=== PATIENT | male | born 1980 | race Caucasian/White ===

== ENCOUNTER 2016-09-13 16:15 | Observation (INO) | payer BC, OTHER ==
[2016-09-13] MEDS ORDERED: ONDANSETRON 4 MG/2 ML VIAL IVP ONE (17:42)
[2016-09-13] MEDS ORDERED: FLUID IV ONE (17:42)
[2016-09-13] MEDS ORDERED: HYDROmorphONE/DILAUDID 1 MG/ML SYR IVP ONE (17:42)
[2016-09-13 17:43] LABS: % IMMATURE GRANULYOCYTES 0.4 % (0.0-1.1); ABSOLUTE IMMATURE GRANULOCYTES 0.04 10^3/uL (0.00-0.10); ADD DIFF? NO; ADD MORPH? NO; ADD SCAN? NO; ATYPICAL LYMPHOCYTE FLAG 0 (0-99); FRAGMENT RBC FLAG 0 (0-99); HEMATOCRIT 48.7 % (40.0-51.0); HEMOGLOBIN 17.3 g/dL (13.7-17.5); LEFT SHIFT FLG 0 (0-99); LIPEMIA HEMOLYSIS FLAG 90 (0-99); MEAN CELL HEMOGLOBIN 28.2 pg (27.9-34.1); MEAN CELL HEMOGLOBIN CONCENTR. 35.5 g/dL (32.4-36.7); MEAN CELL VOLUME 79.3 fL (81.5-99.8); PLATELET CLUMPS FLAG 0 (0-99); PLATELET COUNT 401 10^3/uL (150-400); RED BLOOD CELL COUNT 6.14 10^6/uL (4.40-6.38); RED CELL DISTRIBUTION WIDTH 12.8 % (11.5-15.2)
[2016-09-13 18:07] LABS: ALANINE AMINOTRANSFERASE 51 IU/L (21-72); ALBUMIN 4.5 g/dL (3.5-5.0); ALKALINE PHOSPHATASE 97 IU/L (38-126); ANION GAP 14 mEq/L (8-16); ASPARTATE AMINOTRANSFERASE 28 IU/L (17-59); BILIRUBIN-CONJUGATED 0.4 mg/dL (0.0-0.5); BILIRUBIN-UNCONJUGATED 0.6 mg/dL (0.0-1.1); CALCIUM 9.9 mg/dL (8.5-10.4); CARBON DIOXIDE 24 mEq/l (22-31); CHLORIDE 101 mEq/L (97-110); CREATININE 1.4 mg/dL (0.7-1.3); GLOMERULAR FILTRATION RATE 57; GLUCOSE 116 mg/dL (70-100); POTASSIUM 4.1 mEq/L (3.5-5.2); SODIUM 139 mEq/L (134-144); TOTAL PROTEIN 7.4 g/dL (6.3-8.2)
[2016-09-13] MEDS ORDERED: METOPROLOL TARTRATE 25 MG TAB ONE (18:12)
[2016-09-13] MEDS ORDERED: METOPROLOL TARTRATE 25 MG TAB PO ONE (18:20)
[2016-09-13] MEDS ORDERED: NS 1,000 ML IV ONE (18:56)
--- NOTE | 2016-09-13 18:59 | CT ---
Unenhanced CT Scan of the Abdomen and Pelvis CLINICAL HISTORY: 36-year-old male with an elevated serum creatinine who presents to the ED complaini ng of nausea, vomiting, and diarrhea for 5 days. On physical exam, he has generalized abdominal tende rness. His medical history is notable for hypertension, psoriatic arthritis and peptic ulcer disease. He denies any prior abdominal surgeries. TECHNIQUE: Neither oral, retrograde rectal, nor IV contrast was administered. A multidetector unenhan trevor helical CT scan was obtained from the lung bases inferiorly through the proximal femora, with daniel ges reformatted at 5.00 and 1.25 mm increments, and reviewed at a variety of window and level setting s. Parasagittal and paracoronal reconstructed images are reviewed on the workstation. The DFOV is 42 cm. A dose reduction protocol was used. COMPARISON STUDY: None. FINDINGS: Unenhanced CT Scan of the Abdomen: There are some mild dependent changes seen posteriorly at the lung bases. There is no pericardial or pleural effusion. The spleen is enlarged, measuring 14.2 x 4.5 x 1 2.7 cm. The liver is normal in size. There are no hepatic, pancreatic, splenic, adrenal, renal, or ur eteral calculi. There is some mild atherosclerotic calcification associated with the abdominal aorta and the proximal left common iliac artery. There is a normal appearance to the retrocecal appendix, ( seen on series 3, images 146-186). There is some intraluminal fluid within the stomach and in a porti on of the duodenum. There is no abnormal small bowel dilatation, and the colon appears relatively nor mal. There is no ascites or free air. There is no pathologically-enlarged retroperitoneal or mesenter ic adenopathy. The renal contours are normal, with no hydronephrosis or perinephric inflammation. The osseous structures are age-appropriate. Unenhanced CT Scan of the Pelvis: The prostate gland and the seminal vesicles appear normal. The urin jeronimo bladder is moderately distended. There is no distal ureterolithiasis or urinary bladder calculus. There is no free fluid or adenopathy. The osseous structures appear normal. IMPRESSION: 1. Mild splenomegaly. 2. There is no evidence of a mechanical bowel obstruction or localized enterocolitis. 3. Normal appearance to the retrocecal appendix. 4. There is no evidence of obstructive uropathy or nephroureterolithiasis. Results were discussed with Carlyle Weir PA-C. Attention: This CT examination is specifically designed to evaluate patients who are clinically susp ected of having acute obstructive uropathy. This examination does not use radiographic contrast, and as such, provides only a limited evaluation of the abdomen, pelvis, and retroperitoneum. If there i s further clinical suspicion for pathological conditions other than obstructive uropathy, a complete CT evaluation of the abdomen and pelvis utilizing intravenous, oral, and rectal contrast should be co nsidered. A Document Only message has been documented for CATHLEEN Hua in the [employer] system on 09/13/2016 18:55, Message ID [id number].
[2016-09-13 19:17] LABS: COLOR YELLOW; LEUKOCYTE ESTERASE,URINE NEGATIVE (NEGATIVE); NITRITE,URINE NEGATIVE (NEGATIVE)
[2016-09-13] MEDS ORDERED: MAALOX/LIDO/HYOSC GI COCKTAIL 55 ML BOTTLE PO ONE (19:30)
[2016-09-13] MEDS ORDERED: PANTOPRAZOLE SODIUM 40 MG VIAL IVP ONE (19:30)
[2016-09-13] MEDS ORDERED: ONDANSETRON DISINTEGRATING 4 MG TAB PO PRN (21:17)
[2016-09-13] MEDS ORDERED: PROMETHAZINE HCL 25 MG/ML VIAL IVP PRN (21:17)
[2016-09-13] MEDS ORDERED: PROMETHAZINE HCL 25 MG TAB PO PRN (21:17)
[2016-09-13] MEDS ORDERED: ONDANSETRON 4 MG/2 ML VIAL IVP PRN (21:17)
[2016-09-13] MEDS ORDERED: ACETAMINOPHEN 325 MG TAB PO PRN (21:17)
[2016-09-13] MEDS ORDERED: MAALOX/LIDO/HYOSC GI COCKTAIL 55 ML BOTTLE PO PRN (21:20)
--- NOTE | 2016-09-13 21:30 | PDGENHP ---
History and Physical - Chief Complaint Acute abdominal pain - History of Present Illness Primary canoe builder: Dr. Sargent Primary foam charger: Dr. Fonseca HPI: 36-year-old male presenting with acute abdominal pain located in the left upper quadrant radiating laterally, characterized as sharp, onset of symptoms approximately 1 week ago and duration is persistent thereafter. Symptoms are exacerbated by oral intake of solids and liquids and are associated with non bloody vomiting. The patient also reports that his urine has been particularly dark although he denies overt oliguria. Denies any melena or hematochezia. The only recent medication adjustment was a burst of steroids approximately 10 days ago which he was taking for joint pain. He normally uses Tylenol or Percocet for his joint pain and does not utilize nonsteroidal anti-inflammatory medications. In our emergency department, he received a GI cocktail with pantoprazole and this seemed to somewhat alleviated his symptoms. He has also been seen in the emergency department at [facility] as well as [facility] and has not received any additional workup outside of symptomatic management. History Information - Allergies/Home Medication List Allergies/Adverse Reactions: No Known Allergies Allergy (Unverified 09/13/16 16:27) Home Medications: Acetaminophen [Tylenol Arthritis] 650 mg PO DAILY 09/13/16 [Last Taken 09/11/16] Apremilast [Otezla] 30 mg PO DAILY 09/13/16 [Last Taken 09/08/16] Metoprolol Tartrate [Lopressor 25 mg (*)] 25 mg PO BID 09/13/16 [Last Taken ] clonazePAM [klonoPIN (*)] 1 mg PO BID 09/13/16 [Last Taken 09/13/16] I have personally reviewed and updated: family history, medical history, social history, surgical history - Past Medical History hypertension Additional medical history: Peptic ulcer disease in the setting of heavy nonsteroidal anti-inflammatory medications as well as steroids as well as H pylori, approximately 6 months ago, treated with PPI and antibiotics; psoriatic arthritis, unable to receive biologic secondary to his strong family history of hematologic malignancies - Surgical History Additional surgical history: EGD approximately [address] [facility] - Family History Additional family history: Significant family history of hematologic malignancies, father with leukemia - Social History Smoking Status: Never smoked Alcohol Use: Occasionally Drug Use: Marijuana Additional social history: Normally independent in his ADLs Review of Systems ROS: 10pt was reviewed & negative except for what was stated in HPI & below Gastrointestinal: Reports: vomitting, abdominal pain Muscolosketal: Reports: joint pain, joint swelling Physical Exam Temp Pulse Resp BP Pulse Ox 36.6 C 70 16 132/87 H 97 09/13/16 20:47 09/13/16 20:47 09/13/16 20:47 09/13/16 20:47 09/13/16 20:47 O2 (L/minute) 2 Constitutional: no apparent distress, appears nourished, uncomfortable, No not in pain Eyes: PERRL, anicteric sclera, EOMI Ears, Nose, Mouth, Throat: hearing normal, dry mucous membranes Cardiovascular: regular rate and rhythym, no murmur, rub, or gallop, No edema Respiratory: no respiratory distress, no rales or rhonchi, clear to auscultation Gastrointestinal: normoactive bowel sounds, no palpable masses, tenderness ( Left upper quadrant), No guarding, No distension Skin: other (Small psoriatic plaques over his bilateral dorsal surfaces of his hands, psoriatic plaques on his bilateral shins) Musculoskeletal: other (Right knee effusion, pain with extension and flexion in right knee) Neurologic: AAOx3, sensation intact bilaterally, No weakness Psychiatric: interacting appropriately, not anxious, not encephalopathic, thought process linear Lab Data & Imaging Review 09/13/16 17:30 09/13/16 17:30 WBC 10.69 10^3/uL (3.80-9.50) H 09/13/16 17:30 RBC 6.14 10^6/uL (4.40-6.38) 09/13/16 17:30 Hgb 17.3 g/dL (13.7-17.5) 09/13/16 17:30 Hct 48.7 % (40.0-51.0) 09/13/16 17:30 MCV 79.3 fL (81.5-99.8) L 09/13/16 17:30 MCH 28.2 pg (27.9-34.1) 09/13/16 17:30 MCHC 35.5 g/dL (32.4-36.7) 09/13/16 17:30 RDW 12.8 % (11.5-15.2) 09/13/16 17:30 Plt Count 401 10^3/uL (150-400) H 09/13/16 17:30 MPV 9.0 fL (8.7-11.7) 09/13/16 17:30 Neut % (Auto) 79.3 % (39.3-74.2) H 09/13/16 17:30 Lymph % (Auto) 12.4 % (15.0-45.0) L 09/13/16 17:30 [place] % (Auto) 6.6 % (4.5-13.0) 09/13/16 17:30 Eos % (Auto) 0.9 % (0.6-7.6) 09/13/16 17:30 Baso % (Auto) 0.4 % (0.3-1.7) 09/13/16 17:30 Nucleat RBC Rel Count 0.0 % (0.0-0.2) 09/13/16 17:30 Absolute Neuts (auto) 8.47 10^3/uL (1.70-6.50) H 09/13/16 17:30 Absolute Lymphs (auto) 1.33 10^3/uL (1.00-3.00) 09/13/16 17:30 Absolute Monos (auto) 0.71 10^3/uL (0.30-0.80) 09/13/16 17:30 Absolute Eos (auto) 0.10 10^3/uL (0.03-0.40) 09/13/16 17:30 Absolute Basos (auto) 0.04 10^3/uL (0.02-0.10) 09/13/16 17:30 Absolute Nucleated RBC 0.00 10^3/uL (0-0.01) 09/13/16 17:30 Immature Gran % 0.4 % (0.0-1.1) 09/13/16 17:30 Immature Gran # 0.04 10^3/uL (0.00-0.10) 09/13/16 17:30 Sodium 139 mEq/L (134-144) 09/13/16 17:30 Potassium 4.1 mEq/L (3.5-5.2) 09/13/16 17:30 Chloride 101 mEq/L (97-110) 09/13/16 17:30 Carbon Dioxide 24 mEq/l (22-31) 09/13/16 17:30 Anion Gap 14 mEq/L (8-16) 09/13/16 17:30 BUN 13 mg/dL (7-23) 09/13/16 17:30 Creatinine 1.4 mg/dL (0.7-1.3) H 09/13/16 17:30 Estimated GFR 57 09/13/16 17:30 Glucose 116 mg/dL (70-100) H 09/13/16 17:30 Calcium 9.9 mg/dL (8.5-10.4) 09/13/16 17:30 Total Bilirubin 1.0 mg/dL (0.1-1.4) 09/13/16 17:30 Conjugated Bilirubin 0.4 mg/dL (0.0-0.5) 09/13/16 17:30 Unconjugated Bilirubin 0.6 mg/dL (0.0-1.1) 09/13/16 17:30 AST 28 IU/L (17-59) 09/13/16 17:30 ALT 51 IU/L (21-72) 09/13/16 17:30 Alkaline Phosphatase 97 IU/L (38-126) 09/13/16 17:30 Total Protein 7.4 g/dL (6.3-8.2) 09/13/16 17:30 Albumin 4.5 g/dL (3.5-5.0) 09/13/16 17:30 Lipase 63.0 IU/L (23-300) 09/13/16 17:30 Urine Color YELLOW 09/13/16 18:00 Urine Appearance CLEAR 09/13/16 18:00 Urine pH 9.0 (5.0-7.5) H 09/13/16 18:00 Ur Specific [place] 1.013 (1.002-1.030) 09/13/16 18:00 Urine Protein NEGATIVE (NEGATIVE) 09/13/16 18:00 Urine Ketones NEGATIVE (NEGATIVE) 09/13/16 18:00 Urine Blood NEGATIVE (NEGATIVE) 09/13/16 18:00 Urine Nitrate NEGATIVE (NEGATIVE) 09/13/16 18:00 Urine Bilirubin NEGATIVE (NEGATIVE) 09/13/16 18:00 Urine Urobilinogen NEGATIVE EU (0.2-1.0) 09/13/16 18:00 Ur Leukocyte Esterase NEGATIVE (NEGATIVE) 09/13/16 18:00 Ur Culture Indicated? NOT INDICATED (NI) 09/13/16 18:00 Urine Glucose NEGATIVE (NEGATIVE) 09/13/16 18:00 Assessment & Plan Assessment: 36-year-old male presenting with acute abdominal pain, suspected peptic ulcer disease Plan: 1. Suspected peptic ulcer disease. Acute, evidenced by left upper quadrant pain with history of peptic ulcer disease in the setting of history of H pylori. -patient was not adherent to proton pump inhibitor therapy after his initial treatment for H pylori -abdominal CT was without contrast, but it did not demonstrate any evidence of kidney stone, bowel distention, inflammatory changes such as colitis -patient's current symptoms may have been caused by recent oral prednisone burst -provide IV PPI twice daily, transition to oral tomorrow -GI cocktail as needed -oral oxycodone/IV morphine as needed -recommend EGD, recommend the patient contact his foam charger tomorrow a.m. and see if this can be arranged in the short term, if not, we may need to arrange this for him through GI of the [facility] -clear liquid diet -avoid nonsteroidal anti-inflammatory medications as well as oral prednisone -hold on H pylori testing given that he may receive EGD in the near future 2. Acute kidney injury. Most likely secondary to hypovolemia in the setting of poor oral intake secondary to abdominal symptoms -normal saline at 200 cc an hour, repeat serum creatinine level in a.m. and monitor I/Os 3. Hypertension. Chronic, continue patient's home medications 4. Psoriatic arthritis. Chronic, acute flare in his right knee, treat with ice and pain medications as needed -hold on IV steroid burst unless patient's knee pain is significantly worsened tomorrow and rendering him unable to ambulate -patient has good outpatient rheumatology follow-up Diet. Clear liquid diet Prophylaxis. Low risk patient, SCDs Code status. Full Disposition. Anticipated discharge is 09/14/2016, pending stabilization of issues outlined above. I have discussed the patient's presentation with Carlyle Weir, emergency department provider, we both agree that the patient requires observation and urgent stabilization of his symptoms outlined above.
[2016-09-13] MEDS: clonazePAM 1 MG TAB PO SCH (21:55)
[2016-09-13] MEDS: NS 1,000 ML IV SCH (21:55)
[2016-09-13] MEDS: oxyCODONE IR 5 MG TAB PO PRN (22:00)
--- NOTE | 2016-09-13 22:01 | EDPHY ---
H & P Stated Complaint: N/V/D for 5 days, nimo FAULKNER pain Time Seen by Provider: 09/13/16 17:15 HPI/ROS: Chief complaint: Abdominal pain with nausea, vomiting and diarrhea History of present illness: This is a 28-year-old male with a history of peptic ulcer disease who presents to the emergency department for evaluation and treatment of abdominal pain. Patient has had abdominal pain with nausea, vomiting and diarrhea for the last 5 days. It has been persistent. He states he has been to 2 other hospitals over this time frame including [facility] and the [facility]. He states he has been treated there with improvement in symptoms and discharged home but upon getting home symptoms return and persist. He is using Zofran at home. He denies specific precipitating factors. He denies alleviating factors. He does report an associated headache, he is concerned this is due to his high blood pressure as he cannot take his home medications from the persistent vomiting. He denies other associated signs or symptoms. Review of systems: A 10 point review of systems was obtained and other than described above was negative - Personal History Current Tetanus Diphtheria and Acellular Pertussis (TDAP): Yes - Medical/Surgical History Hx Asthma: No Hx Chronic Respiratory Disease: No Hx Diabetes: No Hx Cardiac Disease: No Hx Renal Disease: No Hx Cirrhosis: No Hx Alcoholism: No Hx HIV/AIDS: No Hx Splenectomy or Spleen Trauma: No Other PMH: Ulcer, psorisis. HTN. - Social History Smoking Status: Never smoked - Physical Exam Exam: General Appearance: Alert, nontoxic. Eyes: Pupils equal and round no pallor or injection. ENT, Mouth: Mucous membranes moist. Respiratory: There are no retractions, lungs are clear to auscultation. Cardiovascular: Regular rate and rhythm. Gastrointestinal: Bowel sounds present. Abdomen is soft and nondistended. There is diffuse tenderness. Neurological: Alert and oriented. Strength and sensation intact and symmetrical. Skin: Warm and dry, no rashes. Musculoskeletal: Neck is supple non tender. Extremities are symmetrical, full range of motion. Psychiatric: Patient is oriented X 3, there is no agitation. Constitutional: Initial Vital Signs Temperature (C) 36.7 C 09/13/16 16:25 Heart Rate 72 09/13/16 16:25 Respiratory Rate 18 09/13/16 16:25 Blood Pressure 210/125 H 09/13/16 16:25 O2 Sat (%) 98 09/13/16 16:25 O2 Delivery Mode Room Air Allergies/Adverse Reactions: No Known Allergies Allergy (Unverified 09/13/16 16:27) Home Medications: Medication Instructions Recorded Acetaminophen [Tylenol Arthritis] 650 mg PO DAILY 09/13/16 Apremilast [Otezla] 30 mg PO DAILY 09/13/16 Metoprolol Tartrate [Lopressor 25 25 mg PO BID 09/13/16 mg (*)] clonazePAM [klonoPIN (*)] 1 mg PO BID 09/13/16 Medical Decision Making ED Course/Re-evaluation: The patient was discussed with my secondary supervising physician Dr. Jason Garrison. Patient presents to the emergency department for abdominal pain with nausea, vomiting and diarrhea. Patient is nontoxic. Vital signs do reveal patient to be significantly hypertensive. He states he is not able to take his home a high blood pressure medication because of persistent vomiting. Blood studies, urinalysis and CT scan largely unremarkable. He is given a dose of his metoprolol, 25 mg which is his standard dose and his blood pressure has improved. Given that this is his 3rd emergency department visit this week for the symptoms and he has had poor control at home he will be admitted to the hospitalist service, Dr. Langston, for further evaluation and care. The plan has been discussed with the patient who voiced understanding and agreement with it. Differential Diagnosis: Included but not limited to peptic ulcer disease, gastritis, gastroenteritis, biliary tract disease, pancreatitis, colitis - Data Points Laboratory Results: Laboratory Results 09/13/16 17:30 09/13/16 17:30 09/13/16 09/13/16 18:00 17:30 WBC 10.69 H 10^3/uL (3.80-9.50) RBC 6.14 10^6/uL (4.40-6.38) Hgb 17.3 g/dL (13.7-17.5) Hct 48.7 % (40.0-51.0) MCV 79.3 L fL (81.5-99.8) MCH 28.2 pg (27.9-34.1) MCHC 35.5 g/dL (32.4-36.7) RDW 12.8 % (11.5-15.2) Plt Count 401 H 10^3/uL (150-400) MPV 9.0 fL (8.7-11.7) Neut % (Auto) 79.3 H % (39.3-74.2) Lymph % (Auto) 12.4 L % (15.0-45.0) [place] % (Auto) 6.6 % (4.5-13.0) Eos % (Auto) 0.9 % (0.6-7.6) Baso % (Auto) 0.4 % (0.3-1.7) Nucleat RBC Rel Count 0.0 % (0.0-0.2) Absolute Neuts (auto) 8.47 H 10^3/uL (1.70-6.50) Absolute Lymphs (auto) 1.33 10^3/uL (1.00-3.00) Absolute Monos (auto) 0.71 10^3/uL (0.30-0.80) Absolute Eos (auto) 0.10 10^3/uL (0.03-0.40) Absolute Basos (auto) 0.04 10^3/uL (0.02-0.10) Absolute Nucleated RBC 0.00 10^3/uL (0-0.01) Immature Gran % 0.4 % (0.0-1.1) Immature Gran # 0.04 10^3/uL (0.00-0.10) Sodium 139 mEq/L (134-144) Potassium 4.1 mEq/L (3.5-5.2) Chloride 101 mEq/L (97-110) Carbon Dioxide 24 mEq/l (22-31) Anion Gap 14 mEq/L (8-16) BUN 13 mg/dL (7-23) Creatinine 1.4 H mg/dL (0.7-1.3) Estimated GFR 57 Glucose 116 H mg/dL (70-100) Calcium 9.9 mg/dL (8.5-10.4) Total Bilirubin 1.0 mg/dL (0.1-1.4) Conjugated Bilirubin 0.4 mg/dL (0.0-0.5) Unconjugated Bilirubin 0.6 mg/dL (0.0-1.1) AST 28 IU/L (17-59) ALT 51 IU/L (21-72) Alkaline Phosphatase 97 IU/L (38-126) Total Protein 7.4 g/dL (6.3-8.2) Albumin 4.5 g/dL (3.5-5.0) Lipase 63.0 IU/L (23-300) Urine Color YELLOW Urine Appearance CLEAR Urine pH 9.0 H (5.0-7.5) Ur Specific [place] 1.013 (1.002-1.030) Urine Protein NEGATIVE (NEGATIVE) Urine Ketones NEGATIVE (NEGATIVE) Urine Blood NEGATIVE (NEGATIVE) Urine Nitrate NEGATIVE (NEGATIVE) Urine Bilirubin NEGATIVE (NEGATIVE) Urine Urobilinogen NEGATIVE EU (0.2-1.0) Ur Leukocyte Esterase NEGATIVE (NEGATIVE) Ur Culture Indicated? NOT INDICATED (NI) Urine Glucose NEGATIVE (NEGATIVE) Medications Given: Discontinued Medications Hydromorphone HCl (Dilaudid) 1 mg IVP EDNOW ONE Stop: 09/13/16 17:43 Last Admin: 09/13/16 17:48 Dose: 1 mg Sodium Chloride (Ns) 1,000 mls @ 0 mls/hr IV ONCE ONE PRN Reason: Wide Open Stop: 09/13/16 18:57 Last Admin: 09/13/16 19:00 Dose: 1,000 mls IV Miscellaneous Supplies (Ed Iv Infusion) 1 ea IV EDNOW ONE Stop: 09/13/16 17:43 Last Admin: 09/13/16 17:49 Dose: 1 ea Metoprolol Tartrate (Lopressor) 25 mg PO EDNOW ONE Stop: 09/13/16 18:21 Last Admin: 09/13/16 18:22 Dose: 25 mg Miscellaneous Medication (Gi Cocktail) 55 ml PO EDNOW ONE Stop: 09/13/16 19:31 Last Admin: 09/13/16 19:52 Dose: 55 ml Ondansetron HCl (Zofran) 4 mg IVP EDNOW ONE Stop: 09/13/16 17:43 Last Admin: 09/13/16 17:49 Dose: 4 mg Pantoprazole Sodium (Protonix) 40 mg IVP EDNOW ONE Stop: 09/13/16 19:31 Last Admin: 09/13/16 19:45 Dose: 40 mg Departure - Departure Disposition: [facility] Acute Clinical Impression: Abdominal pain Condition: Good
[2016-09-14] MEDS: NS 1,000 ML IV SCH (03:04)
[2016-09-14] MEDS: oxyCODONE IR 5 MG TAB PO PRN ×4 (05:44→16:12)
[2016-09-14 05:48] LABS: % IMMATURE GRANULYOCYTES 0.3 % (0.0-1.1); ABSOLUTE IMMATURE GRANULOCYTES 0.02 10^3/uL (0.00-0.10); ADD DIFF? NO; ADD MORPH? NO; ADD SCAN? NO; ATYPICAL LYMPHOCYTE FLAG 0 (0-99); FRAGMENT RBC FLAG 0 (0-99); HEMATOCRIT 39.2 % (40.0-51.0); HEMOGLOBIN 13.4 g/dL (13.7-17.5); LEFT SHIFT FLG 0 (0-99); LIPEMIA HEMOLYSIS FLAG 90 (0-99); MEAN CELL HEMOGLOBIN CONCENTR. 34.2 g/dL (32.4-36.7); MEAN CELL VOLUME 81.8 fL (81.5-99.8); PLATELET CLUMPS FLAG 10 (0-99); PLATELET COUNT 290 10^3/uL (150-400); RED BLOOD CELL COUNT 4.79 10^6/uL (4.40-6.38); RED CELL DISTRIBUTION WIDTH 13.2 % (11.5-15.2)
[2016-09-14 06:26] LABS: ALANINE AMINOTRANSFERASE 37 IU/L (21-72); ALKALINE PHOSPHATASE 58 IU/L (38-126); ANION GAP 7 mEq/L (8-16); ASPARTATE AMINOTRANSFERASE 18 IU/L (17-59); BILIRUBIN,TOTAL 0.7 mg/dL (0.1-1.4); CALCIUM 8.4 mg/dL (8.5-10.4); CARBON DIOXIDE 26 mEq/l (22-31); CHLORIDE 107 mEq/L (97-110); CREATININE 1.3 mg/dL (0.7-1.3); GLOMERULAR FILTRATION RATE > 60; GLUCOSE 82 mg/dL (70-100); POTASSIUM 4.3 mEq/L (3.5-5.2); SODIUM 140 mEq/L (134-144); TOTAL PROTEIN 5.3 g/dL (6.3-8.2)
[2016-09-14] MEDS: PANTOPRAZOLE SODIUM 40 MG in NS 100 ML IV SCH ×2 (08:40→17:09)
[2016-09-14] MEDS: clonazePAM 1 MG TAB PO SCH (08:40)
[2016-09-14 08:41] VITALS: TEMP 98.7
[2016-09-14] MEDS ORDERED: METOPROLOL TARTRATE 25 MG TAB PO SCH (09:00)
[2016-09-14] MEDS ORDERED: Apremilast [Otezla] 30 MG PO SCH (09:00)
[2016-09-14] MEDS ORDERED: methylPREDNISolone SOD SUCC 40 MG/ML VIAL IVP ONE (10:26)
[2016-09-14 16:15] VITALS: BP 144/82; PULSE 73; RESP 18; O2SAT 92
--- NOTE | 2016-09-14 16:51 | DX ---
Right Knee, Two Views. HISTORY: Right knee pain and swelling which is worsening. COMPARISON: August 2014. FINDINGS: There is mild joint narrowing and subarticular sclerosis and periarticular spurring in the medial compartment right knee similar in appearance. There is also mild periarticular spurring at the patella. Suprapatellar joint effusion. Small ununited ossification is seen at the tibial tubercle. N o evidence for acute fracture or dislocation. IMPRESSION: Stable mild degenerative change right knee. Suprapatellar joint effusion.
--- NOTE | 2016-09-14 19:46 | GDS ---
[f rep st] DISCHARGE SUMMARY ALL DIAGNOSES: 1. Abdominal pain secondary to peptic ulcer disease. 2. History of psoriatic arthritis with significant right knee pain. 3. Likely mild acute kidney injury. 4. Hypertension, on medications. HOSPITAL COURSE: A 36-year-old man admitted with severe abdominal pain. This was relieved instantly with a GI cocktail. He was placed on Protonix IV. His diet was slowly advanced. He has eaten a fu ll lunch and tolerated that just fine. He feels much better overall. He will be discharged on Michael nix 20 mg p.o. b.i.d. He does have a known history of peptic ulcer disease, as well as a gastroenter ologist, Dr. Coles in [place] whom he follows with. He will follow up with Dr. Coles for further tr eatment. He was previously treated for H pylori. He may need a test of cure and potentially retreat ment. May also need a repeat endoscopy. He has no signs of an upper gastrointestinal bleed with a n ormal BUN. He has psoriatic arthritis. He had a significantly swollen knee. X-ray of it showed nothing acute, other than suprapatellar edema. He received 1 dose of IV steroids with improvement in the swelling o verall. I have recommended that he go back to a very low dose of prednisone, given the recent upset of his peptic ulcer. He is amenable to this. He has good followup with a photographic technician. Will be a ble to get in to see her next week. /[id number]/MODL
== END 2016-09-14 18:39 | disposition home or self-care (01) ==
LOC: INTOOBSV 19:56 → F1N 21:00
PROVIDERS: ADMIT Internal Medicine; ATTEND Internal Medicine
DX: K27.9 Peptic ulcer, site unspecified, unspecified as acute or chronic, without hemorrhage or perforation (principal); L40.50 Arthropathic psoriasis, unspecified; N17.9 Acute kidney failure, unspecified; I10 Essential (primary) hypertension; E86.1 Hypovolemia; M25.461 Effusion, right knee; M17.11 Unilateral primary osteoarthritis, right knee
CPT/HCPCS: 73560; 74176; 96365; 96375; 99285; G0378; J1170; J2405

== ENCOUNTER 2016-12-27 16:46 | Inpatient (IN) | payer OTHER ==
[2016-12-27] MEDS ORDERED: NS 1,000 ML IV ONE ×2 (17:08→17:41)
[2016-12-27] MEDS ORDERED: ONDANSETRON 4 MG/2 ML VIAL IVP ONE (17:09)
--- NOTE | 2016-12-27 17:28 | EDPHY ---
H & P Stated Complaint: N/V abd pain after restarting methotrexate; states blood in vomit Time Seen by Provider: 12/27/16 16:58 - Personal History Current Tetanus Diphtheria and Acellular Pertussis (TDAP): Yes - Medical/Surgical History Hx Asthma: No Hx Chronic Respiratory Disease: No Hx Diabetes: No Hx Cardiac Disease: No Hx Renal Disease: No Hx Cirrhosis: No Hx Alcoholism: No Hx HIV/AIDS: No Hx Splenectomy or Spleen Trauma: No Other PMH: Ulcer, psorisis. HTN. - Social History Smoking Status: Never smoked Constitutional: Initial Vital Signs Temperature (C) 36.8 C 12/27/16 16:50 Heart Rate 64 12/27/16 16:50 Respiratory Rate 24 H 12/27/16 16:50 Blood Pressure 180/102 H 12/27/16 16:50 O2 Sat (%) 98 12/27/16 16:50 O2 Delivery Mode Room Air Allergies/Adverse Reactions: No Known Allergies Allergy (Verified 12/27/16 16:47) Home Medications: Medication Instructions Recorded Acetaminophen [Tylenol Arthritis] 650 mg PO DAILY 09/13/16 Apremilast [Otezla] 30 mg PO DAILY 09/13/16 Metoprolol Tartrate [Lopressor 25 25 mg PO BID 09/13/16 mg (*)] clonazePAM [klonoPIN (*)] 1 mg PO BID 09/13/16 Pantoprazole Sodium [Protonix 40mg 40 mg PO BID #60 tab 09/14/16 (*)] oxyCODONE IR [Oxycodone Ir (*)] 5 mg PO Q3HRS PRN #15 tab 09/14/16 Methotrexate Sodium [Trexall] 10 mg PO Q7D 12/27/16 Pantoprazole Sodium [Protonix] 40 mg PO DAILY #0 tablet. 12/27/16 Medical Decision Making - Diagnostics Imaging Results: Imaging Impressions Abdomen CT 12/27/16 17:42 Impression: Basically, a normal CT scan of the abdomen and pelvis. Findings and recommendations discussed with Davonte Diallo MD, at 1920 hour, 12/27/2016. Final report concurs with initial preliminary interpretation. Imaging: Discussed imaging studies w/ order caller Radiologist ED Course/Re-evaluation: CHIEF COMPLAINT: Vomiting, abdominal pain. HISTORY OF PRESENT ILLNESS: The patient is a 36-year-old male who presents with vomiting that began this morning upon waking. After a number of episodes he began to see reddish brown flecks in the vomit. He admits associated generalized abdominal pain. He did restart a course of Methotrexate last night. He has taken this medication before without having these symptoms. He takes 10mg Prednisone daily. REVIEW OF SYSTEMS: A 10 point review of systems was performed and is negative with the exception of the elements mentioned in the history of present illness. PHYSICAL EXAM: HR, BP, O2 Sat, RR. Temp noted General Appearance: Alert, well hydrated, appropriate, and non-toxic appearing. Head: Atraumatic without scalp tenderness or obvious injury Eyes: Pupils equal, round, reactive to light and accommodation, EOMI, no trauma , no injection. Ears: Clear bilaterally, no perforation, normal landmarks Nose: Atraumatic, no rhinorrhea, clear. Throat: There is no erythema or exudates, no lesions, normal tonsils, mucus membranes moist. Neck: Supple, 2+ carotid upstroke, nontender, no lymphadenopathy. Respiratory: No retractions, no distress, no wheezes, and no accessory muscle use. Lungs are clear to auscultation bilaterally. Cardiovascular: Regular rate and rhythm, no murmurs, rubs, or gallops. Bilateral carotid, radial, dorsalis pedis, and posterior tibial pulses intact. Good capillary refill all extremities. Gastrointestinal: Abdomen is soft, nontender, non-distended, no masses, no rebound, no guarding, no peritoneal signs. Musculoskeletal: Normal active ROM of all extremities, atraumatic. Neurological: Alert, appropriate, and interactive. The patient has normal DTRs and non-focal cranial nerves, motor, sensory, and cerebellar exam. Skin: No rashes, good turgor, no nodules on palpation. Past medical history: Peptic ulcer, hypertension, psoriasis. Past surgical history: Family history: N/A. Social history: Here alone. DIAGNOSTICS/PROCEDURES/CRITICAL CARE TIME: Study: CT of the abdomen/pelvis. Indication: Abdominal pain, vomiting. Results: See Image Results section for official radiologist report. The study was read by the radiologist. I viewed the images myself on the PACS system. DIFFERENTIAL DIAGNOSIS: The differential diagnosis for the patient's abdominal pain included but was not limited to appendicitis, cholecystitis, hernias, testicular torsion, gastritis, and urinary tract infection. MEDICAL DECISION MAKING: This 36-year-old male presents with vomiting and abdominal pain that he believes are from taking Methotrexate last night. He takes this medicine for peptic ulcers and has taken it before without complication. He is also on 10mg Prednisone daily. Both of these medications increase his risk of GI problems. An IV was established. PO GI cocktail administered. Abdomen/pelvis CT ordered to rule out perforated ulcer. 1mg IV Dilaudid, PO GI cocktail, and 4mg IV Zofran administered. I reviewed the patient's laboratory studies. Blood work is unremarkable for acute abnormality. CT results conveyed to me negative. I believe this represents a gastritis. Patient is also hypertensive at this time at 222/108. 5mg IV Metoprolol administered. 1950: Reassessed patient. Discussed results of workup. He is still having intractable pain. Plan for admission. Hospitalist cuca. 1955: Consulted with Dr. Eden, hospitalist. He accepts admission to med/ surg. He has been placed on IV Protonix drip as he had this during his last admission and it helped provide him relief. - Data Points Laboratory Results: Laboratory Results 12/27/16 18:24 12/27/16 17:10 12/27/16 12/27/16 12/27/16 18:25 18:24 17:10 WBC 9.94 10^3/uL H 10^3/uL (3.80-9.50) RBC 6.10 10^6/uL 10^6/uL (4.40-6.38) Hgb 16.7 g/dL g/dL (13.7-17.5) POC Hgb 16.7 gm/dL gm/dL (14.5-17.3) Hct 47.8 % % (40.0-51.0) POC Hct 49 % % (42.8-50.6) MCV 78.4 fL L fL (81.5-99.8) MCH 27.4 pg L pg (27.9-34.1) MCHC 34.9 g/dL g/dL (32.4-36.7) RDW 13.1 % % (11.5-15.2) Plt Count 441 10^3/uL H 10^3/uL (150-400) MPV 9.3 fL fL (8.7-11.7) Neut % (Auto) 84.2 % H % (39.3-74.2) Lymph % (Auto) 10.0 % L % (15.0-45.0) Spalding % (Auto) 4.4 % L % (4.5-13.0) Eos % (Auto) 0.5 % L % (0.6-7.6) Baso % (Auto) 0.4 % % (0.3-1.7) Nucleat RBC Rel Count 0.0 % % (0.0-0.2) Absolute Neuts (auto) 8.37 10^3/uL H 10^3/uL (1.70-6.50) Absolute Lymphs (auto) 0.99 10^3/uL L 10^3/uL (1.00-3.00) Absolute Monos (auto) 0.44 10^3/uL 10^3/uL (0.30-0.80) Absolute Eos (auto) 0.05 10^3/uL 10^3/uL (0.03-0.40) Absolute Basos (auto) 0.04 10^3/uL 10^3/uL (0.02-0.10) Absolute Nucleated RBC 0.00 10^3/uL 10^3/uL (0-0.01) Immature Gran % 0.5 % % (0.0-1.1) Immature Gran # 0.05 10^3/uL 10^3/uL (0.00-0.10) POC Sodium 145 mEq/L H mEq/L (134-144) Sodium 141 mEq/L mEq/L (134-144) POC Potassium 4.2 mEq/L mEq/L (3.3-5.0) Potassium 4.3 mEq/L mEq/L (3.5-5.2) POC Chloride 110 mEq/L H mEq/L (96-108) Chloride 110 mEq/L mEq/L (97-110) Carbon Dioxide 17 mEq/l L mEq/l (22-31) Anion Gap 14 mEq/L mEq/L (8-16) POC BUN 13 mg/dL mg/dL (7-23) BUN 13 mg/dL mg/dL (7-23) Creatinine 1.4 mg/dL H mg/dL (0.7-1.3) POC Creatinine 1.3 mg/dL mg/dL (0.8-1.5) Estimated GFR 57 Glucose 144 mg/dL H mg/dL (70-100) POC Glucose 117 mg/dL H mg/dL (70-100) Calcium 10.5 mg/dL H mg/dL (8.5-10.4) Total Bilirubin 1.2 mg/dL mg/dL (0.1-1.4) Conjugated Bilirubin 0.7 mg/dL H mg/dL (0.0-0.5) Unconjugated Bilirubin 0.5 mg/dL mg/dL (0.0-1.1) AST 43 IU/L IU/L (17-59) ALT 39 IU/L IU/L (21-72) Alkaline Phosphatase 113 IU/L IU/L (38-126) Total Protein 8.1 g/dL g/dL (6.3-8.2) Albumin 4.7 g/dL g/dL (3.5-5.0) Lipase 82.0 IU/L IU/L (23-300) 12/27/16 17:10 WBC TNP RBC Not Reported Hgb Not Reported POC Hgb Hct Not Reported POC Hct MCV Not Reported MCH Not Reported MCHC Not Reported RDW Not Reported Plt Count Not Reported MPV Not Reported Neut % (Auto) Not Reported Lymph % (Auto) Not Reported Spalding % (Auto) Not Reported Eos % (Auto) Not Reported Baso % (Auto) Not Reported Nucleat RBC Rel Count Not Reported Absolute Neuts (auto) Not Reported Absolute Lymphs (auto) Not Reported Absolute Monos (auto) Not Reported Absolute Eos (auto) Not Reported Absolute Basos (auto) Not Reported Absolute Nucleated RBC Not Reported Immature Gran % Not Reported Immature Gran # Not Reported POC Sodium Sodium POC Potassium Potassium POC Chloride Chloride Carbon Dioxide Anion Gap POC BUN BUN Creatinine POC Creatinine Estimated GFR Glucose POC Glucose Calcium Total Bilirubin Conjugated Bilirubin Unconjugated Bilirubin AST ALT Alkaline Phosphatase Total Protein Albumin Lipase Medications Given: Discontinued Medications Al Hydroxide/Mg Hydroxide (Maalox Susp) 30 ml PO ONCE ONE Stop: 12/27/16 17:42 Last Admin: 12/27/16 18:05 Dose: 30 ml Hydromorphone HCl (Dilaudid) 1 mg IVP EDNOW ONE Stop: 12/27/16 17:42 Last Admin: 12/27/16 17:49 Dose: 1 mg Hydromorphone HCl (Dilaudid) 1 mg IVP EDNOW ONE Stop: 12/27/16 18:58 Last Admin: 12/27/16 19:07 Dose: 1 mg Hyoscyamine Sulfate (Levsin, Hyomax-Sl) 0.25 mg PO ONCE ONE Stop: 12/27/16 17:42 Last Admin: 12/27/16 18:05 Dose: 0.25 mg Sodium Chloride (Ns) 1,000 mls @ 0 mls/hr IV ONCE ONE PRN Reason: Wide Open Stop: 12/27/16 17:09 Last Admin: 12/27/16 17:15 Dose: 1,000 mls Sodium Chloride (Ns) 1,000 mls @ 0 mls/hr IV ONCE ONE PRN Reason: Wide Open Stop: 12/27/16 17:42 Last Admin: 12/27/16 19:07 Dose: 1,000 mls Lidocaine (Lidocaine 2% Viscous) 15 ml PO ONCE ONE Stop: 12/27/16 17:42 Last Admin: 12/27/16 18:05 Dose: 15 ml Metoprolol Tartrate (Lopressor Injection) 5 mg IVP EDNOW ONE Stop: 12/27/16 19:47 Last Admin: 12/27/16 19:58 Dose: 5 mg Ondansetron HCl (Zofran) 4 mg IVP EDNOW ONE Stop: 12/27/16 17:10 Last Admin: 12/27/16 17:16 Dose: 4 mg Point of Care Test Results: 12/27/16 18:25 POC Sodium 145 H POC Potassium 4.2 POC Chloride 110 H POC BUN 13 POC Creatinine 1.3 POC Glucose 117 H Departure - Departure Disposition: [facility] Acute Clinical Impression: abdominal pain secondary to medications, Psoriatic arthritis Gastritis Qualifiers: Gastritis type: unspecified gastritis Chronicity: acute Gastritis bleeding: without bleeding Qualified Code(s): K29.00 - Acute gastritis without bleeding Nausea & vomiting Qualifiers: Vomiting type: unspecified Vomiting Intractability: unspecified Qualified Code( s): R11.2 - Nausea with vomiting, unspecified Condition: Fair Report Scribed for: Davonte Diallo Report Scribed by: Dionisio Montes Date of Report: 12/27/16 Time of Report: 17:37
[2016-12-27] MEDS ORDERED: MAG HYDROX/AL HYDROX/SIMETH 30 ML UDCUP PO ONE ×2 (17:41→20:15)
[2016-12-27] MEDS ORDERED: HYOSCYAMINE SULFATE 0.125 MG TAB PO ONE ×2 (17:41→20:15)
[2016-12-27] MEDS ORDERED: HYDROmorphONE/DILAUDID 1 MG/ML SYR IVP ONE ×2 (17:41→18:57)
[2016-12-27] MEDS ORDERED: LIDOCAINE 2% VISCOUS 15 ML UDCUP PO ONE ×2 (17:41→20:15)
[2016-12-27 18:32] LABS: ALANINE AMINOTRANSFERASE 39 IU/L (21-72); ALBUMIN 4.7 g/dL (3.5-5.0); ALKALINE PHOSPHATASE 113 IU/L (38-126); ANION GAP 14 mEq/L (8-16); ASPARTATE AMINOTRANSFERASE 43 IU/L (17-59); BILIRUBIN,TOTAL 1.2 mg/dL (0.1-1.4); BILIRUBIN-CONJUGATED 0.7 mg/dL (0.0-0.5); BILIRUBIN-UNCONJUGATED 0.5 mg/dL (0.0-1.1); CALCIUM 10.5 mg/dL (8.5-10.4); CARBON DIOXIDE 17 mEq/l (22-31); CHLORIDE 110 mEq/L (97-110); CREATININE 1.4 mg/dL (0.7-1.3); GLOMERULAR FILTRATION RATE 57; GLUCOSE 144 mg/dL (70-100); POTASSIUM 4.3 mEq/L (3.5-5.2); SODIUM 141 mEq/L (134-144); TOTAL PROTEIN 8.1 g/dL (6.3-8.2)
[2016-12-27 18:40] LABS: % IMMATURE GRANULYOCYTES 0.5 % (0.0-1.1); ABSOLUTE IMMATURE GRANULOCYTES 0.05 10^3/uL (0.00-0.10); ADD DIFF? NO; ADD MORPH? NO; ADD SCAN? NO; ATYPICAL LYMPHOCYTE FLAG 0 (0-99); FRAGMENT RBC FLAG 0 (0-99); HEMATOCRIT 47.8 % (40.0-51.0); HEMOGLOBIN 16.7 g/dL (13.7-17.5); LEFT SHIFT FLG 0 (0-99); LIPEMIA HEMOLYSIS FLAG 90 (0-99); MEAN CELL HEMOGLOBIN 27.4 pg (27.9-34.1); MEAN CELL HEMOGLOBIN CONCENTR. 34.9 g/dL (32.4-36.7); MEAN CELL VOLUME 78.4 fL (81.5-99.8); MEAN PLATELET VOLUME 9.3 fL (8.7-11.7); PLATELET CLUMPS FLAG 0 (0-99); PLATELET COUNT 441 10^3/uL (150-400); RED CELL DISTRIBUTION WIDTH 13.1 % (11.5-15.2)
[2016-12-27] MEDS ORDERED: IOPAMIDOL (ISOVUE-300) 100 ML BTL IV ONE (18:47)
[2016-12-27] MEDS ORDERED: METOPROLOL TARTRATE 5 MG/5 ML INJ IVP ONE (19:46)
[2016-12-27] MEDS ORDERED: PANTOPRAZOLE SODIUM 80 MG in NS 100 ML IV ONE (20:12)
[2016-12-27] MEDS ORDERED: methylPREDNISolone SOD SUCC 40 MG/ML VIAL IVP ONE (20:16)
[2016-12-27] MEDS ORDERED: ONDANSETRON DISINTEGRATING 4 MG TAB PO PRN (20:23)
[2016-12-27] MEDS ORDERED: METOCLOPRAMIDE 10 MG/2 ML VIAL IVP PRN (20:23)
[2016-12-27] MEDS ORDERED: LORazepam 2 MG/ML INJ IVP PRN (20:23)
[2016-12-27] MEDS ORDERED: hydrALAZINE 20 MG/ML VIAL IVP PRN (20:30)
--- NOTE | 2016-12-27 20:53 | GHP ---
[f rep st] HISTORY AND PHYSICAL DATE OF ADMISSION: 12/27/2016 CHIEF COMPLAINT: Abdominal pain. HISTORY OF PRESENT ILLNESS: This is a 36-year-old man with a history of psoriatic arthritis who pre sents with acute nausea, vomiting, and abdominal pain. He has recently had a flare-up of his psoria tic arthritis and started methotrexate 7.5 mg last night. Before then, he had no GI symptoms. He w joe up this morning feeling nauseous. He had approximately 20 episodes of emesis with slightly wors ening abdominal pain. It became severe, and thus he presented to the emergency department. He had 1 possible episode of hematemesis while here. He has had episodes of this before, saw a GI doctor, has been treated for H pylori. He has not had a recent endoscopy. He has been told that he had [facility] ers in the past. He is taking Prilosec and has been taking 20 mg p.o. twice daily. He is also taki ng prednisone 10 mg daily, and no NSAIDs. PAST MEDICAL/SURGICAL HISTORY: 1. Hypertension. 2. Psoriatic arthritis. MEDICATIONS: Please see medication reconciliation. ALLERGIES: None. FAMILY HISTORY: Possibly his father had psoriatic arthritis. SOCIAL HISTORY: Does not drink or smoke. REVIEW OF SYSTEMS: 10-point review of systems is conducted and is negative except per HPI. PHYSICAL EXAM: VITAL SIGNS: Blood pressure as high as 225/129, heart rate 49, respiration rate 19, saturating 96% on room air. Temperature is 37.2. GENERAL: The patient is a slightly uncomfortabl e man who appears anxious. Otherwise in no acute distress. HEENT: Shows him to be normocephalic, atraumatic. CARDIOVASCULAR: Regular rate and rhythm. No murmurs, rubs, or gallops. PULMONARY: L ungs clear to auscultation bilaterally. ABDOMEN: Soft. He is mildly diffusely tender to palpation . There is no mass or hepatosplenomegaly. No guarding or rebound tenderness. SKIN: Multiple patc hy areas of erythema consistent with psoriasis. NEUROLOGIC: Shows him to be alert and oriented x3. He is moving all extremities. PSYCHIATRIC: Normal mood and affect. EXTREMITIES: His right knee to be have an effusion. There is no erythema. LABS: White count is 9.9, hemoglobin is 16. Sodium 141, bicarb 17, creatinine 1.4, calcium 10.5. DATA: I discussed this with Dr. Diallo. Will admit to med/surg. Abdominal CT is essentially normal. I personally viewed and interpreted this myself as well as read the radiologist interpretation. IMPRESSION AND PLAN: 36-year-old man with gastritis. 1. Gastritis: He has significant emesis and abdominal pain. May be reaction to methotrexate, may be flare of his reported peptic ulcer disease. Slightly better with GI cocktail. CT scan normal. Will continue conservative measures tonight including his 2nd GI cocktail, IV Protonix, pain control . Will also get antiemetics. He had 1 reported episode of hematemesis which I think is a Cadence-W eiss tear more likely than an ulcer. If his hemoglobin drops significantly overnight, could conside r gastrointestinal consultation. Could also consider this if pain is uncontrolled. 2. Psoriatic arthritis with recent flare: I will give him 1 higher dose of Solu-Medrol. Will then restart his oral prednisone if he is taking p.o. tomorrow. 3. Hypertension, uncontrolled: Due to not taking his oral Lopressor and uncontrolled pain. It is much better with 1 small dose of Lopressor 5 mg IV. I will write him to get a low dose of hydralazi ne as needed given his borderline bradycardia. Restart his oral Lopressor when he can take p.o. /[id number]/MODL
[2016-12-27] MEDS: PANTOPRAZOLE SODIUM 40 MG in NS 100 ML IV SCH (21:03)
[2016-12-27] MEDS: NS 1,000 ML IV SCH (21:03)
[2016-12-27] MEDS: HYDROmorphONE/DILAUDID 1 MG/ML SYR IVP PRN (21:17)
[2016-12-27] MEDS ORDERED: BETAMETHASONE TP PRN (21:39)
[2016-12-27] MEDS ORDERED: CALCIPOTRIENE TP PRN (21:39)
[2016-12-27] MEDS ORDERED: ZOLPIDEM TARTRATE 5 MG TAB PO PRN (21:45)
[2016-12-27] MEDS: clonazePAM 1 MG TAB PO PRN (21:51)
[2016-12-27] MEDS: OXYCODONE/APAP 5/325 TAB PO PRN (23:36)
[2016-12-28] MEDS: HYDROmorphONE/DILAUDID 1 MG/ML SYR IVP PRN ×3 (01:39→17:12)
[2016-12-28] MEDS: NS 1,000 ML IV SCH (05:22)
[2016-12-28 05:49] LABS: % IMMATURE GRANULYOCYTES 0.2 % (0.0-1.1); ABSOLUTE IMMATURE GRANULOCYTES 0.02 10^3/uL (0.00-0.10); ADD DIFF? NO; ADD MORPH? NO; ADD SCAN? NO; ATYPICAL LYMPHOCYTE FLAG 0 (0-99); FRAGMENT RBC FLAG 0 (0-99); HEMATOCRIT 39.8 % (40.0-51.0); HEMOGLOBIN 13.5 g/dL (13.7-17.5); LEFT SHIFT FLG 0 (0-99); LIPEMIA HEMOLYSIS FLAG 90 (0-99); MEAN CELL HEMOGLOBIN 27.6 pg (27.9-34.1); MEAN CELL HEMOGLOBIN CONCENTR. 33.9 g/dL (32.4-36.7); MEAN CELL VOLUME 81.2 fL (81.5-99.8); MEAN PLATELET VOLUME 9.3 fL (8.7-11.7); PLATELET CLUMPS FLAG 0 (0-99); PLATELET COUNT 318 10^3/uL (150-400); RED CELL DISTRIBUTION WIDTH 13.4 % (11.5-15.2)
[2016-12-28 06:06] LABS: ANION GAP 6 mEq/L (8-16); CALCIUM 8.7 mg/dL (8.5-10.4); CARBON DIOXIDE 22 mEq/l (22-31); CHLORIDE 110 mEq/L (97-110); CREATININE 1.2 mg/dL (0.7-1.3); GLOMERULAR FILTRATION RATE > 60; GLUCOSE 91 mg/dL (70-100); SODIUM 138 mEq/L (134-144)
[2016-12-28] MEDS: PANTOPRAZOLE SODIUM 40 MG in NS 100 ML IV SCH ×2 (09:22→20:54)
[2016-12-28] MEDS: METOPROLOL TARTRATE 25 MG TAB PO SCH ×2 (09:24→20:52)
[2016-12-28] MEDS: predniSONE 5 MG TAB PO SCH ×2 (09:24→20:52)
[2016-12-28] MEDS: FOLIC ACID 1 MG TAB PO SCH (09:24)
--- NOTE | 2016-12-28 10:00 | HOSPPROG ---
Hospitalist Progress Note Assessment/Plan: Patient is a 36-year-old male presented to the emergency room with acute nausea vomiting abdominal pain. He has known psoriatic arthritis and had a flare-up and was started on methotrexate. Today is my 1st encounter with the patient. Chart reviewed. * Abdominal pain with nausea and vomiting, gastritis and evaluated his CT scan which showed nothing acute nausea and vomiting have resolved but continues to have abdominal pain and is requiring IV pain meds will do a trial of clear liquids and advance his diet as tolerated * psoriatic arthritis with recent flare treated with IV Solu-Medrol will resume his prednisone recommending an anti-inflammatory diet * hypertension blood pressure is 134/90 *Plan: will see how he does later this afternoon/ if can eat and drink and pain is controlled/ will dc home Subjective: Truong said his abdominal pain is much improved. Objective: Vital Signs Temp Pulse Resp BP Pulse Ox 36.4 C 64 16 151/109 H 98 12/28/16 08:00 12/28/16 09:24 12/28/16 08:00 12/28/16 09:24 12/28/16 08:00 Laboratory Results 12/28/16 05:24 12/28/16 05:24 12/27/16 12/28/16 12/29/16 05:59 05:59 05:59 Intake Total 2000 Output Total 1010 Balance 990 - Physical Exam Constitutional: no apparent distress, appears nourished, not in pain Eyes: PERRL Ears, Nose, Mouth, Throat: hearing normal Cardiovascular: regular rate and rhythym Respiratory: no respiratory distress Gastrointestinal: normoactive bowel sounds Skin: warm Musculoskeletal: no muscle tenderness Neurologic: AAOx3 Psychiatric: interacting appropriately, not anxious ICD10 Worksheet Patient Problems: Problems Problem Status Onset Gastritis Acute Nausea & vomiting Acute Psoriatic arthritis Acute Abdominal pain Acute
[2016-12-28] MEDS: ACETAMINOPHEN 325 MG TAB PO PRN ×2 (12:53→22:27)
[2016-12-28] MEDS: oxyCODONE IR 5 MG TAB PO PRN ×2 (14:37→21:01)
[2016-12-28] MEDS: clonazePAM 1 MG TAB PO PRN ×2 (15:45→23:12)
[2016-12-28] MEDS: SUCRALFATE 1 GM/10 ML UDCUP PO SCH ×2 (17:12→20:52)
[2016-12-29 05:38] LABS: % IMMATURE GRANULYOCYTES 0.1 % (0.0-1.1); ABSOLUTE IMMATURE GRANULOCYTES 0.01 10^3/uL (0.00-0.10); ADD DIFF? NO; ADD MORPH? NO; ADD SCAN? NO; ATYPICAL LYMPHOCYTE FLAG 0 (0-99); FRAGMENT RBC FLAG 0 (0-99); HEMATOCRIT 39.3 % (40.0-51.0); HEMOGLOBIN 13.6 g/dL (13.7-17.5); LEFT SHIFT FLG 0 (0-99); LIPEMIA HEMOLYSIS FLAG 90 (0-99); MEAN CELL HEMOGLOBIN 28.2 pg (27.9-34.1); MEAN CELL HEMOGLOBIN CONCENTR. 34.6 g/dL (32.4-36.7); MEAN CELL VOLUME 81.4 fL (81.5-99.8); MEAN PLATELET VOLUME 9.3 fL (8.7-11.7); PLATELET CLUMPS FLAG 0 (0-99); PLATELET COUNT 273 10^3/uL (150-400); RED BLOOD CELL COUNT 4.83 10^6/uL (4.40-6.38); RED CELL DISTRIBUTION WIDTH 13.1 % (11.5-15.2)
[2016-12-29 05:53] LABS: ANION GAP 8 mEq/L (8-16); CALCIUM 9.2 mg/dL (8.5-10.4); CARBON DIOXIDE 24 mEq/l (22-31); CHLORIDE 107 mEq/L (97-110); CREATININE 1.1 mg/dL (0.7-1.3); GLOMERULAR FILTRATION RATE > 60; GLUCOSE 87 mg/dL (70-100); POTASSIUM 4.1 mEq/L (3.5-5.2); SODIUM 139 mEq/L (134-144)
[2016-12-29] MEDS: predniSONE 5 MG TAB PO SCH ×3 (08:53→20:29)
[2016-12-29] MEDS: PANTOPRAZOLE SODIUM 40 MG in NS 100 ML IV SCH ×2 (08:53→20:28)
[2016-12-29] MEDS: FOLIC ACID 1 MG TAB PO SCH (08:53)
[2016-12-29] MEDS: SUCRALFATE 1 GM/10 ML UDCUP PO SCH ×4 (08:53→20:29)
[2016-12-29] MEDS: METOPROLOL TARTRATE 25 MG TAB PO SCH ×2 (08:53→20:29)
[2016-12-29] MEDS: clonazePAM 1 MG TAB PO PRN ×2 (09:05→20:35)
--- NOTE | 2016-12-29 09:33 | HOSPPROG ---
Hospitalist Progress Note Assessment/Plan: Patient is a 36-year-old male presented to the emergency room with acute nausea vomiting abdominal pain. He has known psoriatic arthritis and had a flare-up and was started on methotrexate. * Abdominal pain with nausea and vomiting, gastritis evaluated his CT scan which showed nothing acute nausea and vomiting have resolved but continues to have abdominal pain and is requiring IV pain meds pain increases w eating hx of ulcers and h pylori * psoriatic arthritis with recent flare treated with IV Solu-Medrol will resume his prednisone recommending an anti-inflammatory diet * hypertension blood pressure is 145/84 *Plan: pain is ongoing/ not improving/ spoke with Dr Condon, he will get an EGD in the a.m. Subjective: Truong is feeling poorly, cont to have abdominal pain. Objective: Vital Signs Temp Pulse Resp BP Pulse Ox 36.6 C 54 L 18 145/84 H 94 12/29/16 08:49 12/29/16 08:49 12/29/16 08:49 12/29/16 08:49 12/29/16 08:49 Laboratory Results 12/29/16 05:26 12/29/16 05:26 12/28/16 12/29/16 12/30/16 05:59 05:59 05:59 Intake Total 2000 550 Output Total 1010 700 175 Balance 990 -150 -175 - Physical Exam Constitutional: uncomfortable, No not in pain Eyes: PERRL Ears, Nose, Mouth, Throat: hearing normal Respiratory: no respiratory distress Gastrointestinal: tenderness Musculoskeletal: full muscle strength Neurologic: AAOx3 Psychiatric: interacting appropriately ICD10 Worksheet Patient Problems: Problems Problem Status Onset Gastritis Acute Nausea & vomiting Acute Psoriatic arthritis Acute Abdominal pain Acute
[2016-12-29] MEDS: HYDROmorphONE/DILAUDID 1 MG/ML SYR IVP PRN ×2 (12:17→17:52)
[2016-12-29] MEDS: oxyCODONE IR 5 MG TAB PO PRN ×3 (12:21→23:17)
[2016-12-29] MEDS: OXYCODONE/APAP 5/325 TAB PO PRN (20:29)
[2016-12-30] MEDS: SUCRALFATE 1 GM/10 ML UDCUP PO SCH ×4 (08:46→21:09)
[2016-12-30] MEDS: predniSONE 5 MG TAB PO SCH ×2 (08:47→21:08)
[2016-12-30] MEDS: FOLIC ACID 1 MG TAB PO SCH (08:47)
[2016-12-30] MEDS: METOPROLOL TARTRATE 25 MG TAB PO SCH ×2 (08:47→21:09)
--- NOTE | 2016-12-30 08:54 | GCON ---
[f rep st] CONSULTATION CHIEF COMPLAINT: Epigastric pain. HISTORY OF PRESENT ILLNESS: This is a 36-year-old gentleman who has a history of psoriatic arthritis. He had presented to the hospital with acute nausea, vomiting, as well as epigastric pain. 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 He had been asymptomatic prior to that. On the morning of admission, he was feeling nauseous and had several episodes up the 20 of emesis with worsening abdominal pain. Pain became severe that he presented to the emergency department. He did have 1 episode of hematemesis while in the emergency department. He does have a prior history of peptic ulcer disease and was H pylori positive, about a year ago. He had been on Prilosec prior to admission as well as prednisone. The patient was clinically improving but the pain became worse during hospitalization, and I was asked to see patient for further evaluation. PAST MEDICAL HISTORY: 1. Remarkable for hypertension. 2. Psoriatic arthritis. ALLERGIES: No known drug allergies. FAMILY HISTORY: Remarkable for father with possible psoriatic, arthritis otherwise negative as it pertains to HPI. SOCIAL HISTORY: He is a nonsmoker and nondrinker. MEDICATIONS: In the hospital acetaminophen, Klonopin, folic acid, Apresoline, Dilaudid, Ativan, Reglan, Lopressor, Zofran, oxycodone IR, Percocet, pantoprazole 40 mg b.i.d., prednisone 5 mg b.i.d., sucralfate 1 g p.o. q.i.d., and Ambien 10 mg at bedtime as needed. REVIEW OF SYSTEMS: Negative for 10 systems other than mentioned in the HPI. PHYSICAL EXAMINATION: VITAL SIGNS: 155/99, heart rate of 52, respiratory rate 14, 93% on room air. Afebrile at 36.6. GENERAL: A very pleasant gentleman somewhat sleepy lying in bed, in no acute distress. HEENT: Normocephalic, atraumatic. EOMI. Neck is supple. No cervical adenopathy. Mucous membranes moist. LUNGS: Clear. CARDIAC: Normal S1, S2 without murmur. ABDOMEN: Soft. Normal bowel sounds. Mild tenderness to palpation in epigastrium. EXTREMITIES: Without clubbing, cyanosis, edema. NEURO: Nonfocal. SKIN: Warm and dry, intact. LABORATORY DATA: Hemoglobin of 13.6 with hematocrit 30.9. Serum chemistries: Serum sodium 139, potassium 4.1, chloride 107, CO2 24, creatinine of 1.1. IMPRESSION: A 36-year-old gentleman with history of psoriatic arthritis, history of peptic ulcer disease, and hypertension. The patient was recently started on methotrexate and may have had some GI toxicity and symptoms related to methotrexate. The patient with significant retching and vomiting, and may have developed significant gastritis or a Cadence-Wade tear. RECOMMENDATIONS: N.p.o., proceed with diagnostic endoscopy for further evaluation for gastritis, peptic ulcer disease, esophagitis or Cadence-Wade tear. Continue on IV pantoprazole 40 mg twice daily. We will follow with you. /[id number]/MODL MTDD
[2016-12-30] MEDS: HYDROmorphONE/DILAUDID 1 MG/ML SYR IVP PRN ×4 (09:34→21:09)
[2016-12-30] MEDS: PANTOPRAZOLE SODIUM 40 MG in NS 100 ML IV SCH ×2 (09:34→20:05)
[2016-12-30] MEDS ORDERED: methylPREDNISolone SOD SUCC 40 MG/ML VIAL IVP ONE (09:58)
--- NOTE | 2016-12-30 10:01 | HOSPPROG ---
Hospitalist Progress Note Assessment/Plan: Patient is a 36-year-old male presented to the emergency room with acute nausea vomiting abdominal pain. He has known psoriatic arthritis and had a flare-up and was started on methotrexate. * Abdominal pain with nausea and vomiting, gastritis evaluated his CT scan which showed nothing acute continues to have significant abdominal pain/ getting and EGD this morning hx of ulcers and h pylori * psoriatic arthritis with recent flare will give a dose of IV Solu-Medrol now/ NPO and prednisone on hold recommending an anti-inflammatory diet * hypertension blood pressure is 155/99 *Plan: EGD today Subjective: Mikhail is having ongoing abdominal pain. Objective: Vital Signs Temp Pulse Resp BP Pulse Ox 36.6 C 47 L 16 155/99 H 94 12/30/16 09:37 12/30/16 09:37 12/30/16 09:37 12/30/16 04:00 12/30/16 09:37 12/29/16 12/30/16 12/31/16 05:59 05:59 05:59 Intake Total 800 Output Total 1 Balance 799 - Physical Exam Constitutional: uncomfortable, No not in pain Eyes: PERRL Ears, Nose, Mouth, Throat: hearing normal Respiratory: no respiratory distress Gastrointestinal: tenderness Skin: warm Musculoskeletal: full muscle strength Neurologic: AAOx3 Psychiatric: interacting appropriately ICD10 Worksheet Patient Problems: Problems Problem Status Onset Gastritis Acute Nausea & vomiting Acute Psoriatic arthritis Acute Abdominal pain Acute
[2016-12-30] MEDS ORDERED: PROPOFOL 200 MG/20 ML VIAL ONE (11:04)
[2016-12-30] MEDS ORDERED: fentaNYL 100 MCG/2 ML INJ ONE (11:05)
[2016-12-30] MEDS ORDERED: MIDAZOLAM 2 MG/2 ML VIAL ONE (11:21)
[2016-12-30] MEDS ORDERED: KETAMINE 100 MG/10 ML SYR IVP ONE (11:28)
[2016-12-30] MEDS ORDERED: hydrALAZINE 20 MG/ML VIAL ONE (11:35)
--- NOTE | 2016-12-30 11:54 | GPN ---
[f rep st] PROCEDURE NOTE DATE OF PROCEDURE: 12/30/2016 PROCEDURE PERFORMED: Esophagogastroduodenoscopy with biopsy. PREOPERATIVE DIAGNOSIS: Epigastric pain, nausea, vomiting, hematemesis. POSTOPERATIVE DIAGNOSIS: Gastritis, status post biopsy antrum and body for Helicobacter pylori. INDICATIONS: A 36-year-old gentleman who has psoriatic arthritis. He had acute onset nausea, vomit ing and epigastric pain after the initiation of methotrexate. He had several episodes of vomiting w ith reported 1 episode of hematemesis. He has had persistent symptoms since hospitalization. He do es have a prior history of peptic ulcer disease. He presents today for upper endoscopy. PHYSICAL EXAMINATION: VITAL SIGNS: Stable. LUNGS: Clear. CARDIAC: Normal S1, S2 without murmur . PERMIT: Procedure was explained to the patient. Risks and benefits of the procedure were outlined to the patient. Informed consent was obtained. PREOPERATIVE MEDICATIONS: Per Anesthesia. FINDINGS OF PROCEDURE: The patient was placed in the left lateral decubitus position. GIF-180 vide o scope was passed in the oropharynx under direct visualization. The proximal esophagus and esophag us was normal. GE junction at 40 cm. Endoscope was passed in the stomach. He had a normal antrum and body without any evidence of blood. However, there was some mild to moderate gastritis, diffuse in the antrum. The scope was passed through the pylorus in the 1st and 2nd portions of the duodenu m. Duodenal sweep was normal. The scope was brought back in the stomach. Retroflexion in the stom ach revealed a normal angularis, fundus and cardia. The scope was un-retroflexed. Biopsies were ta damon of the antrum body for H pylori and histology. The endoscope was then withdrawn. The patient t olerated the procedure well. IMPRESSION: Mild to moderate gastritis, otherwise normal upper endoscopy. Status post biopsy for H elicobacter pylori and gastritis. RECOMMENDATIONS: 1. Continue supportive care. 2. Pantoprazole 40 mg b.i.d. 3. Antinausea medication as needed. Carafate 1 g 4 times daily. 4. Would recommend avoiding methotrexate or treatment of psoriatic arthritis per his day treatment clinician/art therapist . Advance. 5. Advance diet as tolerated. /[id number]/MODL
[2016-12-30] MEDS: ONDANSETRON 4 MG/2 ML VIAL IVP PRN ×3 (13:09→23:54)
[2016-12-30] MEDS: clonazePAM 1 MG TAB PO PRN (21:09)
[2016-12-30] MEDS: oxyCODONE IR 5 MG TAB PO PRN (23:55)
[2016-12-31 07:40] VITALS: RESP 16
[2016-12-31] MEDS: SUCRALFATE 1 GM/10 ML UDCUP PO SCH (08:27)
[2016-12-31] MEDS: PANTOPRAZOLE SODIUM 40 MG in NS 100 ML IV SCH (08:28)
[2016-12-31] MEDS: predniSONE 5 MG TAB PO SCH (08:28)
[2016-12-31] MEDS: METOPROLOL TARTRATE 25 MG TAB PO SCH (08:28)
[2016-12-31] MEDS: FOLIC ACID 1 MG TAB PO SCH (08:28)
[2016-12-31] MEDS: oxyCODONE IR 5 MG TAB PO PRN (08:38)
--- NOTE | 2016-12-31 10:36 | HOSPPROG ---
Hospitalist Progress Note Assessment/Plan: Patient is a 36-year-old male presented to the emergency room with acute nausea vomiting abdominal pain. He has known psoriatic arthritis and had a flare-up and was started on methotrexate. * Abdominal pain with nausea and vomiting, gastritis EGD confirmed gastritis CT showed nothing acute dc home * psoriatic arthritis with recent flare was given dose of IV Solu-Medrol while npO, now on prednisone recommending an anti-inflammatory diet * hypertension blood pressure is 120/73 *Plan: dc Subjective: Truong is feeling much better today. Objective: Vital Signs Temp Pulse Resp BP Pulse Ox 36.6 C 50 L 16 120/73 94 12/31/16 07:39 12/31/16 07:39 12/31/16 07:39 12/31/16 07:39 12/31/16 07:39 12/30/16 12/31/16 01/01/17 05:59 05:59 05:59 Intake Total 800 700 Output Total 1 0 Balance 799 700 - Physical Exam Constitutional: no apparent distress, appears nourished Eyes: PERRL Ears, Nose, Mouth, Throat: hearing normal Cardiovascular: no murmur, rub, or gallop Respiratory: no respiratory distress Gastrointestinal: normoactive bowel sounds Skin: warm Musculoskeletal: full muscle strength Neurologic: AAOx3 Psychiatric: interacting appropriately ICD10 Worksheet Patient Problems: Problems Problem Status Onset Gastritis Acute Nausea & vomiting Acute Psoriatic arthritis Acute Abdominal pain Acute
[2016-12-31 11:13] VITALS: BP 138/82; PULSE 59; TEMP 98.1; O2SAT 93
--- NOTE | 2016-12-31 20:59 | GDS ---
[f rep st] DISCHARGE SUMMARY DISCHARGE DIAGNOSES: 1. Abdominal pain with associated nausea, vomiting/gastritis. 2. Psoriatic arthritis with recent flare. 3. Hypertension. CONSULTATIONS DURING HIS STAY: Dr. Mikhail Condon with gastroenterology. BRIEF HISTORY: The patient is a 36-year-old male with a history of psoriatic arthritis who presented with acute nausea, vomiting, abdominal pain. He recently had a flare-up of his psoriatic arthritis. He was started on methotrexate 7.5 mg prior to his admission. He woke up feeling nauseated and had 20 episodes of emesis. He was admitted, seen, and evaluated by Dr. Condon, who did an EGD. It was noted that he has gastritis, recommending that he avoid methotrexate, if possible. HOSPITAL COURSE PER PROBLEM: 1. Abdominal pain with associated nausea and vomiting. He has had no further bouts of nausea and vomiting. EGD showed gastritis. He had a CT scan that showed nothing acute. 2. Psoriatic arthritis with recent flare. He resumed his prednisone. I am recommending that he get on an anti-inflammatory diet. 3. Hypertension. Blood pressure is elevated at 138/82. PENDING LABS: Surgical specimen from his stomach is pending. CONDITION AT DISCHARGE: Blood pressure is 138/82, heart rate 59, respiratory rate 16, O2 sats on room air 93%, temperature 36.7 Celsius. MEDICATIONS AT DISCHARGE: Please see the EMR. DISCHARGE INSTRUCTIONS: 1. Do not drink or drive while taking OxyIR. He will get a prescription of 10. 2. If he develops fever, chills, chest pain, worsening abdominal pain, to return to the ER. Greater than 30 minutes discharging and coordinating care. /[id number]/MODL MTDD
== END 2016-12-31 12:20 | disposition home or self-care (01) | DRG 392 ==
LOC: F3E 20:51 → OBSVTOIN 12-29 13:38
PROVIDERS: ADMIT Student in an Organized Health Care Education/Training Program; ATTEND Student in an Organized Health Care Education/Training Program
PROC: 0DB68ZX Excision of Stomach, Via Natural or Artificial Opening Endoscopic, Diagnostic (ICD-10-PCS; principal; 2016-12-30 11:24)
DX: K29.50 Unspecified chronic gastritis without bleeding (principal); L40.50 Arthropathic psoriasis, unspecified; I10 Essential (primary) hypertension; T44.7X6A Underdosing of beta-adrenoreceptor antagonists, initial encounter
CPT/HCPCS: 82947-QW; 96374; G0378; J0360; J1170; J2060; J2250; J2405; J2704; J3010; Q9967

== ENCOUNTER 2017-02-01 04:51 | Emergency (ER) | payer OTHER ==
[2017-02-01] MEDS ORDERED: LIDOCAINE 2% VISCOUS 15 ML UDCUP PO ONE ×2 (04:57→07:47)
[2017-02-01] MEDS ORDERED: PROMETHAZINE HCL 25 MG/ML INJ IVP ONE (04:57)
[2017-02-01] MEDS ORDERED: FAMOTIDINE 20 MG/NACL 50 ML IV ONE (04:57)
[2017-02-01] MEDS ORDERED: MAG HYDROX/AL HYDROX/SIMETH 30 ML UDCUP PO ONE ×2 (04:57→07:47)
[2017-02-01] MEDS ORDERED: NS 1,000 ML IV ONE (04:57)
[2017-02-01] MEDS ORDERED: HYOSCYAMINE SULFATE 0.125 MG TAB PO ONE ×2 (04:57→07:47)
[2017-02-01 05:01] LABS: % IMMATURE GRANULYOCYTES 0.5 % (0.0-1.1); ABSOLUTE IMMATURE GRANULOCYTES 0.05 10^3/uL (0.00-0.10); ADD DIFF? NO; ADD MORPH? NO; ADD SCAN? NO; ATYPICAL LYMPHOCYTE FLAG 0 (0-99); FRAGMENT RBC FLAG 0 (0-99); HEMATOCRIT 46.6 % (40.0-51.0); HEMOGLOBIN 16.4 g/dL (13.7-17.5); LEFT SHIFT FLG 0 (0-99); LIPEMIA HEMOLYSIS FLAG 90 (0-99); MEAN CELL HEMOGLOBIN 28.4 pg (27.9-34.1); MEAN CELL HEMOGLOBIN CONCENTR. 35.2 g/dL (32.4-36.7); MEAN CELL VOLUME 80.8 fL (81.5-99.8); MEAN PLATELET VOLUME 9.7 fL (8.7-11.7); PLATELET CLUMPS FLAG 10 (0-99); PLATELET COUNT 494 10^3/uL (150-400); RED BLOOD CELL COUNT 5.77 10^6/uL (4.40-6.38); RED CELL DISTRIBUTION WIDTH 13.3 % (11.5-15.2)
[2017-02-01 05:17] LABS: ALANINE AMINOTRANSFERASE 39 IU/L (21-72); ALBUMIN 4.6 g/dL (3.5-5.0); ALKALINE PHOSPHATASE 115 IU/L (38-126); ANION GAP 16 mEq/L (8-16); ASPARTATE AMINOTRANSFERASE 29 IU/L (17-59); BILIRUBIN,TOTAL 1.2 mg/dL (0.1-1.4); BILIRUBIN-CONJUGATED 0.5 mg/dL (0.0-0.5); BILIRUBIN-UNCONJUGATED 0.7 mg/dL (0.0-1.1); CALCIUM 10.4 mg/dL (8.5-10.4); CARBON DIOXIDE 22 mEq/l (22-31); CHLORIDE 102 mEq/L (97-110); CREATININE 1.3 mg/dL (0.7-1.3); GLOMERULAR FILTRATION RATE > 60; GLUCOSE 146 mg/dL (70-100); POTASSIUM 3.8 mEq/L (3.5-5.2); SODIUM 140 mEq/L (134-144); TOTAL PROTEIN 7.7 g/dL (6.3-8.2)
--- NOTE | 2017-02-01 05:24 | EDPHY ---
H & P Stated Complaint: LUQ abd pain x24h, N/V Source: Patient - Medical/Surgical History Hx Asthma: No Hx Chronic Respiratory Disease: No Hx Diabetes: No Hx Cardiac Disease: No Hx Renal Disease: No Hx Cirrhosis: No Hx Alcoholism: No Hx HIV/AIDS: No Hx Splenectomy or Spleen Trauma: No Other PMH: Peptic ulcers, psoriosis, HTN, anxiety - Social History Smoking Status: Never smoked <Poppy Flower - Last Filed: 02/01/17 06:53> <Davonte Diallo - Last Filed: 02/01/17 08:18> HPI/ROS: HPI The patient presents with abdominal pain for the last 1 day of epigastric, cramping and stabbing in nature, does not radiate and is associated with multiple episodes of nausea and vomiting. He is brought in by ambulance and received fentanyl 100 mcg with Zofran 4 mg for his symptoms. At home, he is managing his symptoms with Zofran sucralfate and omeprazole. He has had some difficulty taking his medications because of vomiting. He has had several previous similar episodes. He was seen and admitted to the hospital about 1 month ago for this. EGD was done which revealed gastritis. REVIEW OF SYSTEMS Constitutional: No fever, no chills. Eyes: No discharge. ENT: No sore throat. Cardiovascular: No chest pain, no palpitations. Respiratory: No cough, no shortness of breath. Gastrointestinal: No abdominal pain, no vomiting. Genitourinary: No hematuria. Musculoskeletal: No back pain. Skin: No rashes. Neurological: No headache. PMHx: Gastritis, hypertension, anxiety, psoriasis Soc Hx: Lives with his partner, occasional alcohol use, none recently, marijuana use occasionally PHYSICAL General Appearance: Alert, uncomfortable appearing Eyes: Pupils equal and round no pallor or injection ENT, Mouth: Mucous membranes dry Respiratory: There are no retractions, lungs are clear to auscultation Cardiovascular: Regular rate and rhythm Gastrointestinal: Abdomen is soft with tenderness in the epigastrium, no masses , bowel sounds normal Neurological: A&O, moves all extremities Skin: Warm and dry, no rashes Musculoskeletal: Neck is supple non tender Extremities: symmetrical, full range of motion Psychiatric: Patient is oriented X 3, there is no agitation (Poppy Flower) Constitutional: Initial Vital Signs Temperature (C) 37.1 C 02/01/17 05:00 Heart Rate 73 02/01/17 05:00 Respiratory Rate 16 02/01/17 05:00 Blood Pressure 162/106 H 02/01/17 05:00 O2 Sat (%) 93 02/01/17 05:00 O2 Delivery Mode Room Air Allergies/Adverse Reactions: No Known Allergies Allergy (Verified 12/27/16 16:47) Home Medications: Medication Instructions Recorded Acetaminophen [Tylenol 325mg (*)] 325 - 650 mg PO DAILY 12/27/16 Calcipotriene/Betamethasone 1 rosey TP DAILY PRN 12/27/16 [Enstilar 0.005%-0.064% Foam] Folic Acid [Folic Acid 1 MG (*)] 1 mg PO DAILY 12/27/16 Herbals/Supplements -Info Only 1 ea PO DAILY 12/27/16 Methotrexate Sodium [Rheumatrex] 7.5 mg PO Q7D 12/27/16 Metoprolol Tartrate [Lopressor 25 25 mg PO BID 12/27/16 mg (*)] Omeprazole [Prilosec 20 mg] 20 mg PO BID 12/27/16 Zolpidem Tartrate [Ambien 10 mg] 10 mg PO HS PRN 12/27/16 clonazePAM [klonoPIN (*)] 1 mg PO TID PRN 12/27/16 oxyCODONE/APAP 5/325 [Percocet 1 - 2 tab PO Q6H PRN 12/27/16 5/325 (*)] predniSONE [Prednisone] 5 mg PO BID 12/27/16 Sucralfate [Carafate 1 GM (*)] 1 gm PO ACHS #28 tab 12/31/16 oxyCODONE IR [Oxycodone Ir (*)] 5 mg PO Q3HRS PRN #10 tab 12/31/16 Ondansetron Odt [Zofran Odt 4 mg 4 mg PO Q4 PRN #10 tab 02/01/17 (RX)] oxyCODONE IR [Oxycodone Ir (*)] 5 - 10 mg PO Q6 PRN #20 tab 02/01/17 Medical Decision Making <Poppy Flower - Last Filed: 02/01/17 06:53> <Davonte Diallo - Last Filed: 02/01/17 08:18> Differential Diagnosis: This is a 36-year-old male brought in by ambulance for recurrent epigastric abdominal pain associated with nausea and vomiting. Recent workup reveals gastritis. He is currently on a PPI though has continued symptoms. These became worse about 24 hours ago and he has not been able to manage at home. He does not have any dark or bloody stools. Differential diagnosis includes worsening gastritis, pancreatitis, cyclic vomiting syndrome, canabanoid hyperemesis syndrome. (Poppy Flower) Other Provider: 0700: I assumed care of this patient at shift change from Dr. Flower. Discharge pending. 0800: The patient is a 36 y/o male, with a history of psoriatic arthritis, who presented here for evaluation of abdominal pain for the last month. Dr. Flower planned for him to be discharged home with outpatient follow up, but refused when RN attempted to discharge him. He states he's been unable to take steroids for his arthritis and his hypertension medication due to his ongoing GI symptoms and now has worsening joint pain that he needs help managing. He says he is scheduled to see his modeling analyst on 02/07, next week, but says, "I don' t have any Percocet left" to help him with pain until then. He is also scheduled to see his GI doctor on 02/12. Exam: Bilateral splotchy erythema to both legs lesions and moderate right knee swelling, which patient reports is slightly worse than baseline. His BP is high at 166/133, but he is both in pain and off his hypertension medications. Plan to write short-term script for OxyIR to use until follow up with his modeling analyst. He will also receive 10mg IV Decadron here for his arthritis and script for Zofran to take home. I've advised him to resume his hypertension medications upon his return home. Return precautions given. He is comfortable with this plan. (Davonte Diallo) - Data Points Laboratory Results: Laboratory Results 02/01/17 04:50 02/01/17 04:50 02/01/17 02/01/17 04:50 04:50 WBC 9.73 10^3/uL H 10^3/uL (3.80-9.50) RBC 5.77 10^6/uL 10^6/uL (4.40-6.38) Hgb 16.4 g/dL g/dL (13.7-17.5) Hct 46.6 % % (40.0-51.0) MCV 80.8 fL L fL (81.5-99.8) MCH 28.4 pg pg (27.9-34.1) MCHC 35.2 g/dL g/dL (32.4-36.7) RDW 13.3 % % (11.5-15.2) Plt Count 494 10^3/uL H 10^3/uL (150-400) MPV 9.7 fL fL (8.7-11.7) Neut % (Auto) 81.7 % H % (39.3-74.2) Lymph % (Auto) 11.9 % L % (15.0-45.0) Brewster % (Auto) 5.0 % % (4.5-13.0) Eos % (Auto) 0.4 % L % (0.6-7.6) Baso % (Auto) 0.5 % % (0.3-1.7) Nucleat RBC Rel Count 0.0 % % (0.0-0.2) Absolute Neuts (auto) 7.94 10^3/uL H 10^3/uL (1.70-6.50) Absolute Lymphs (auto) 1.16 10^3/uL 10^3/uL (1.00-3.00) Absolute Monos (auto) 0.49 10^3/uL 10^3/uL (0.30-0.80) Absolute Eos (auto) 0.04 10^3/uL 10^3/uL (0.03-0.40) Absolute Basos (auto) 0.05 10^3/uL 10^3/uL (0.02-0.10) Absolute Nucleated RBC 0.00 10^3/uL 10^3/uL (0-0.01) Immature Gran % 0.5 % % (0.0-1.1) Immature Gran # 0.05 10^3/uL 10^3/uL (0.00-0.10) Sodium 140 mEq/L mEq/L (134-144) Potassium 3.8 mEq/L mEq/L (3.5-5.2) Chloride 102 mEq/L mEq/L (97-110) Carbon Dioxide 22 mEq/l mEq/l (22-31) Anion Gap 16 mEq/L mEq/L (8-16) BUN 9 mg/dL mg/dL (7-23) Creatinine 1.3 mg/dL mg/dL (0.7-1.3) Estimated GFR > 60 Glucose 146 mg/dL H mg/dL (70-100) Calcium 10.4 mg/dL mg/dL (8.5-10.4) Total Bilirubin 1.2 mg/dL mg/dL (0.1-1.4) Conjugated Bilirubin 0.5 mg/dL mg/dL (0.0-0.5) Unconjugated Bilirubin 0.7 mg/dL mg/dL (0.0-1.1) AST 29 IU/L IU/L (17-59) ALT 39 IU/L IU/L (21-72) Alkaline Phosphatase 115 IU/L IU/L (38-126) Total Protein 7.7 g/dL g/dL (6.3-8.2) Albumin 4.6 g/dL g/dL (3.5-5.0) Lipase 91.0 IU/L IU/L (23-300) Medications Given: Discontinued Medications Al Hydroxide/Mg Hydroxide (Maalox Susp) 30 ml PO ONCE ONE Stop: 02/01/17 04:58 Last Admin: 02/01/17 05:19 Dose: 30 ml Hyoscyamine Sulfate (Levsin, Hyomax-Sl) 0.25 mg PO ONCE ONE Stop: 02/01/17 04:58 Last Admin: 02/01/17 05:19 Dose: 0.25 mg Sodium Chloride (Ns) 1,000 mls @ 0 mls/hr IV ONCE ONE; Wide Open PRN Reason: Protocol Stop: 02/01/17 04:58 Last Admin: 02/01/17 05:20 Dose: 1,000 mls Famotidine/Sodium Chloride (Pepcid 20 Mg (Premix)) 50 mls @ 200 mls/hr IV EDNOW ONE Stop: 02/01/17 05:11 Last Admin: 02/01/17 05:18 Dose: 50 mls Lidocaine (Lidocaine 2% Viscous) 15 ml PO ONCE ONE Stop: 02/01/17 04:58 Last Admin: 02/01/17 05:19 Dose: 15 ml Ondansetron HCl (Zofran Odt) 4 mg PO EDNOW ONE Stop: 02/01/17 07:45 Last Admin: 02/01/17 07:44 Dose: 4 mg Promethazine HCl (Phenergan) 12.5 mg IVP EDNOW ONE Stop: 02/01/17 04:58 Last Admin: 02/01/17 05:17 Dose: 12.5 mg Departure <Poppy Flower - Last Filed: 02/01/17 06:53> <Davonte Diallo - Last Filed: 02/01/17 08:18> - Departure Disposition: Home, Routine, Self-Care Clinical Impression: Psoriatic arthritis Abdominal pain Qualifiers: Abdominal location: generalized Qualified Code(s): R10.84 - Generalized abdominal pain Gastritis Qualifiers: Gastritis type: unspecified gastritis Chronicity: acute Gastritis bleeding: without bleeding Qualified Code(s): K29.00 - Acute gastritis without bleeding Nausea & vomiting Qualifiers: Vomiting type: unspecified Vomiting Intractability: non-intractable Qualified Code(s): R11.2 - Nausea with vomiting, unspecified Condition: Good Instructions: Ondansetron (By mouth), Diet for Stomach Ulcers and Gastritis (ED ), Arthritis (ED) Additional Instructions: 1. Use OxyIR as prescribed for pain. 2. Use Zofran as needed for nausea and vomiting. 3. Follow up with your modeling analyst and GI doctor as scheduled. 4. Resume your hypertension medications when you return home. 5. Return to the ED for worsening of condition. Referrals: [facility] [Other] - As per Instructions Prescriptions: Ondansetron Odt [Zofran Odt 4 mg (RX)] 4 mg PO Q4 PRN #10 tab PRN Reason: Nausea/Vomiting, Use 1st oxyCODONE IR [Oxycodone Ir (*)] 5 - 10 mg PO Q6 PRN #20 tab PRN Reason: Pain, Severe Report Scribed for: Davonte Diallo Report Scribed by: Dulce Maria Broussard Date of Report: 02/01/17 Time of Report: 08:14 <Davonte Diallo - Last Filed: 02/01/17 08:18>
[2017-02-01] MEDS ORDERED: ONDANSETRON DISINTEGRATING 4 MG TAB ONE (07:38)
[2017-02-01] MEDS ORDERED: ONDANSETRON DISINTEGRATING 4 MG TAB PO ONE (07:44)
[2017-02-01 08:00] VITALS: RESP 18; TEMP 97.9; O2SAT 96
[2017-02-01] MEDS ORDERED: DEXAMETHASONE 10 MG/ML VIAL ONE (08:14)
[2017-02-01] MEDS ORDERED: DEXAMETHASONE 10 MG/ML VIAL IVP ONE (08:14)
[2017-02-01 08:58] VITALS: BP 168/103; PULSE 75
== END 2017-02-01 08:58 | disposition home or self-care (01) ==
LOC: EDUNIT#
DX: K29.00 Acute gastritis without bleeding (principal); L40.50 Arthropathic psoriasis, unspecified; I10 Essential (primary) hypertension
CPT/HCPCS: 96374; J2550